=== PATIENT | female | born 1990 | race Caucasian/White ===

== ENCOUNTER 2018-12-24 21:42 | Inpatient (IN) ==
[2018-12-24] MEDS ORDERED: MEPERIDINE 50 MG/1 ML VIAL IV PRN (21:54)
[2018-12-24] MEDS ORDERED: ONDANSETRON 4 MG/2 ML VIAL IV PRN (21:54)
[2018-12-24] MEDS ORDERED: BUTORPHANOL 2 MG/ML VIAL IV PRN (21:54)
[2018-12-24] MEDS ORDERED: LACTATED RINGERS 1,000 ML IV SCH (22:00)
[2018-12-24] MEDS ORDERED: CLINDAMYCIN INJ 900 MG in PREMIX 1 EACH IV SCH (22:00)
[2018-12-24 22:13] LABS: Basophils % 0.3 % (0.0-0.8); Eosinophils % 0.4 % (0.00-10.9); Hematocrit 31.3 VOL% (35.7-47.0); Hemoglobin 9.4 GM/DL (12.0-16.0); Immature Granulocytes % 0.8 %; Immature Granulocytes Absolute 0.09 #; Lymphocytes # 2.4 10*3/uL (1.4-4.0); Mean Corpuscular Volume 83.5 FL (87-102); Mean Platelet Volume 11.1 FL (9.6-12.0); Monocytes % 6.4 % (1.7-12.7); Neutrophils % 70.1 % (38.7-73.9); Platelet Count 244 T/CUMM (130-400); Red Blood Count 3.75 MC/CUMM (3.8-5.5); Red Cell Distribution Width 15.5 % (9.3-17.3); White Blood Count 11.1 T/CUMM (4-12)
[2018-12-25] MEDS ORDERED: OXYTOCIN/LR 20 UNIT/1,000 ML BAG IV SCH (07:00)
[2018-12-25] MEDS ORDERED: FAMOTIDINE 20 MG/2 ML VIAL IV ONE (08:43)
[2018-12-25] MEDS ORDERED: ePHEDrine 50 MG/ML AMP IV PRN (08:43)
[2018-12-25] MEDS ORDERED: LACTATED RINGERS 1,000 ML IV ONE (08:43)
[2018-12-25] MEDS ORDERED: CITRIC ACID/SODIUM CITRATE 30 ML UDCUP PO ONE (08:43)
[2018-12-25] MEDS ORDERED: hydrOXYzine HCL 25 MG/1 ML VIAL IM PRN (08:44)
[2018-12-25] MEDS ORDERED: PROMETHAZINE 25 MG/1 ML VIAL IM ONE (08:44)
[2018-12-25] MEDS ORDERED: diphenhydrAMINE 50 MG/1 ML VIAL IV PRN ×2 (08:44)
[2018-12-25] MEDS ORDERED: NALOXONE 0.4 MG/ML VIAL IV PRN (08:44)
[2018-12-25] MEDS ORDERED: fentaNYL 2 MCG/ROPIV 0.2% EPID 100 ML EPIDURAL SCH (09:00)
[2018-12-25] MEDS ORDERED: METHYLERGONOVINE 0.2 MG/1 ML AMP ONE (10:51)
[2018-12-25] MEDS ORDERED: miSOPROStol 200 MCG TABLET ONE (10:51)
[2018-12-25] MEDS ORDERED: CARBOPROST TROMETHAMINE 250 MCG/ML AMP IM ONE (10:52)
[2018-12-25] MEDS ORDERED: LIDOCAINE MPF 2% /EPI 20 ML VIAL ONE (11:18)
[2018-12-25] MEDS ORDERED: TERBUTALINE 1 MG/1 ML VIAL SUBCUT ONE ×2 (11:27)
[2018-12-25] MEDS ORDERED: LIDOCAINE 1% 50 ML VIAL ONE (11:37)
[2018-12-25 11:41] LABS: Cord Arterial Blood HCO3 9.6 MMOL/L
[2018-12-25 11:42] LABS: Cord Venous Blood HCO3 18.2 MMOL/L; Cord Venous Blood PO2 20.5 MMHG
[2018-12-25] MEDS ORDERED: BISACODYL 10 MG SUPP RECTAL PRN (12:05)
[2018-12-25] MEDS ORDERED: oxyCODONE/ACETAMINOPHEN 5-325 MG TABLET PO PRN (12:05)
[2018-12-25] MEDS ORDERED: ACETAMINOPHEN 325 MG TABLET PO PRN (12:05)
[2018-12-25] MEDS ORDERED: WITCH HAZEL PADS 100/JAR TOP PRN (12:05)
[2018-12-25] MEDS ORDERED: HYDROCORTISONE 2.5% RECTAL CREAM 30 GM TUBE TOP PRN (12:05)
[2018-12-25] MEDS ORDERED: BENZOCAINE 20%/MENTHOL 0.5% SPRAY 56 GM CAN TOP PRN (12:05)
[2018-12-25] MEDS ORDERED: ONDANSETRON 4 MG/2 ML VIAL IV PRN (12:05)
[2018-12-25] MEDS ORDERED: MEASLES/MUMPS/RUBELLA VACCINE 0.5 ML VIAL SUBCUT ONE (12:05)
[2018-12-25] MEDS ORDERED: LANOLIN 50% CREAM 0.3 OZ TUBE TOP PRN (12:05)
[2018-12-25] MEDS ORDERED: DIPH/TET/ACEL PERT BOOSTER VACCINE 0.5 ML VIAL IM ONE (12:05)
[2018-12-25] MEDS ORDERED: OXYTOCIN/LR 20 UNIT/1,000 ML BAG IV ONE (12:05)
[2018-12-25] MEDS ORDERED: RHO(D) IMMUNE GLOBULIN 300 MCG SYRINGE IM ONE (12:05)
[2018-12-25] MEDS: IBUPROFEN 800 MG TABLET PO PRN (17:54)
[2018-12-25] MEDS: oxyCODONE/ACETAMINOPHEN 5-325 MG TABLET PO PRN (21:03)
[2018-12-25] MEDS: DOCUSATE SODIUM 100 MG CAPSULE PO SCH (21:04)
[2018-12-26] MEDS: IBUPROFEN 800 MG TABLET PO PRN ×2 (01:55→10:10)
[2018-12-26] MEDS: oxyCODONE/ACETAMINOPHEN 5-325 MG TABLET PO PRN (03:21)
[2018-12-26 05:03] LABS: Basophils % 0.3 % (0.0-0.8); Eosinophils % 0.2 % (0.00-10.9); Hematocrit 22.5 VOL% (35.7-47.0); Hemoglobin 6.6 GM/DL (12.0-16.0); Immature Granulocytes % 0.7 %; Immature Granulocytes Absolute 0.08 #; Lymphocytes # 2.3 10*3/uL (1.4-4.0); Lymphocytes % 20.4 % (21.3-54.2); Mean Corpuscular HGB Conc 29.3 GM/DL (32-36); Mean Corpuscular Volume 85.2 FL (87-102); Mean Platelet Volume 11.3 FL (9.6-12.0); Monocytes % 6.9 % (1.7-12.7); Neutrophils % 71.5 % (38.7-73.9); Platelet Count 170 T/CUMM (130-400); Red Blood Count 2.64 MC/CUMM (3.8-5.5); Red Cell Distribution Width 15.7 % (9.3-17.3)
[2018-12-26] MEDS: FERROUS SULFATE 325 MG TABLET PO SCH ×2 (10:08→20:56)
[2018-12-26] MEDS: DOCUSATE SODIUM 100 MG CAPSULE PO SCH ×2 (10:08→20:56)
[2018-12-26] MEDS ORDERED: FUROSEMIDE 40 MG/4 ML VIAL IV ONE (10:20)
[2018-12-26] MEDS ORDERED: diphenhydrAMINE CAP 25 MG CAPSULE PO PRN (23:10)
[2018-12-27] MEDS: oxyCODONE/ACETAMINOPHEN 5-325 MG TABLET PO PRN ×2 (00:52→06:30)
[2018-12-27] MEDS: IBUPROFEN 800 MG TABLET PO PRN (00:53)
[2018-12-27 07:22] VITALS: BP 119/59
[2018-12-27] MEDS: DOCUSATE SODIUM 100 MG CAPSULE PO SCH (09:27)
[2018-12-27] MEDS: FERROUS SULFATE 325 MG TABLET PO SCH (09:27)
== END 2018-12-27 14:20 | disposition home or self-care (01) ==
LOC: N.LDOUT 21:42 → N.LD 21:45 → N.OB 12-25 16:12
PROVIDERS: ADMIT Specialist; ATTEND Specialist